=== PATIENT | female | born 1975 | race Caucasian/White ===

== ENCOUNTER 2021-02-18 05:35 | Day surgery (SDC) | payer OTHER ==
[2021-02-17 16:22] VITALS: BMI 48.9
[2021-02-18] MEDS ORDERED: LIDOCAINE 1%/EPI 1:100000 (50 ML MULTI DOSE VIAL) ONE (09:17)
[2021-02-18] MEDS ORDERED: PROPOFOL 20 ML ONE (10:26)
[2021-02-18] MEDS ORDERED: LIDOCAINE HCL/PF 2% SDV 5ML VIAL ONE (10:26)
[2021-02-18] MEDS ORDERED: MIDAZOLAM HCL 2 MG/2 ML SINGLE DOSE VIAL ONE (10:26)
[2021-02-18] MEDS ORDERED: DEXAMETHASONE SOD PHOSPHATE 4 MG/1 ML VIAL ONE (10:26)
[2021-02-18] MEDS ORDERED: oxyCODONE HCL 5 MG TABLET PO PRN (11:50)
[2021-02-18] MEDS ORDERED: ONDANSETRON 4 MG/2 ML VIAL IVPUSH PRN (11:50)
[2021-02-18] MEDS ORDERED: ACETAMINOPHEN 1000 MG/100 ML VIAL (NON FORMULARY) IVPB ONE (11:53)
[2021-02-18] MEDS ORDERED: LACTATED RINGERS SOLUTION 1,000 ML IV SCH (12:00)
[2021-02-18] MEDS ORDERED: oxyCODONE HCL 5 MG TABLET ONE (12:52)
[2021-02-18] MEDS ORDERED: oxyCODONE HCL 5 MG TABLET PO ONE (13:05)
[2021-02-18 13:13] VITALS: TEMP 97.5
[2021-02-18 14:22] VITALS: BP 130/90; PULSE 74
== END 2021-02-18 14:30 | disposition home health service (06) ==
LOC: JASU-SURG 05:35
PROVIDERS: ATTEND Orthopaedic Surgery
PROC: 0SBC4ZZ Excision of Right Knee Joint, Percutaneous Endoscopic Approach (ICD-10-PCS; principal; 2021-02-18 10:15)
DX: M23.231 Derangement of other medial meniscus due to old tear or injury, right knee (principal)
CPT/HCPCS: 81025; 94760; 97116-GP; J0131